=== PATIENT | female | born 1940 | race Caucasian/White ===

== ENCOUNTER → 2019-09-10 | Day surgery (SDC) | payer MEDICARE ==
[2019-09-05 12:55] LABS: BASOPHILS % 0.5 % (0.0-1.0); EOSINOPHILS # (AUTO) 0.1 (0.0-0.4); EOSINOPHILS % 1.5 % (0.0-6.0); HEMATOCRIT 37.3 % (34.2-44.1); HEMOGLOBIN 12.1 g/dL (12.0-16.0); LYMPHOCYTES # (AUTO) 1.6 (1.0-3.2); LYMPHOCYTES % 23.4 % (18.0-39.1); MEAN CORPUSCULAR HEMOGLOBIN 32.4 pg (28-32); MEAN CORPUSCULAR HGB CONC 32.4 g/dL (31-35); MEAN CORPUSCULAR VOLUME 99.7 fL (81-99); MONOCYTES # (AUTO) 0.8 (0.2-0.8); MONOCYTES % 11.6 % (4.4-11.3); NEUTROPHILS # (AUTO) 4.1 (2.1-6.9); NEUTROPHILS % 62.7 % (38.7-80.0); PLATELET COUNT 247 x10e3/uL (140-360); RED BLOOD COUNT 3.74 x10e6/uL (3.6-5.1); RED CELL DISTRIBUTION WIDTH 13.1 % (11.7-14.4)
--- NOTE | 2019-09-05 13:03 | Diagnostic Imaging Report ---
Chest, PA and lateral. History: Preoperative evaluation for left knee surgery. Comparison: None available. Discussion: The cardiomediastinal silhouette and pulmonary vasculature are within normal limits. The lungs are clear without evidence of consolidation or effusion. There are no acute osseous abnormalities. IMPRESSION: No radiographic evidence of acute cardiopulmonary abnormality. Signed by: Alvaro Martinez MD on 09/05/2019 1:00 PM
[2019-09-05 13:17] LABS: ANION GAP 13.9 mmol/L (8-16); BLOOD UREA NITROGEN 15 mg/dL (7-26); BUN/CREATININE RATIO 17 (6-25); CALCIUM 9.9 mg/dL (8.4-10.2); CARBON DIOXIDE 27 mmol/L (22-29); CHLORIDE 101 mmol/L (98-107); CREATININE, SERUM 0.89 mg/dL (0.57-1.11); EST GLOMERULAR FILTRATION RATE > 60 ML/MIN (60-); GLUCOSE 85 mg/dL (74-118); POTASSIUM 3.9 mmol/L (3.5-5.1); SODIUM 138 mmol/L (136-145)
[~2019-09-10] MED LIST: BUPIVACAINE HCL 0.5% INJ 30 ML VIAL INJ ONE; CEFAZOLIN SOD 1 GM/NS 50ML 100 ML IV ONE; DEXAMETHASONE SOD PHOS INJ 4 MG/ML VIAL ONE; FENTANYL CITRATE/PF 100MCG/2 ML INJ ONE; KETOROLAC TROMETHAMINE 30 MG/ML VIAL ONE; LEVOTHYROXINE50 MCG PO; LIDOCAINE HCL 2% LOCAL INJ 5 ML SDV VIAL INJ ONE; ONDANSETRON HCL INJ 2MG/ML 2ML 2 MG/ML VIAL ONE; PROPOFOL IV EMULSION 10 MG/ML 20 ML VIAL ONE; SEVOFLURANE INHAL SOLN 250 ML PEN BTL ONE; VITAMIN B-121000 MCG SC; [UNRECOGNIZED DRUG - OTHER] PO
--- OUTSIDE RECORDS SUMMARY | 2019-09-10 11:58 | XMS REPORT ---
[facility] Address Unknown Phone Unavailable Care Team Providers Care Qa Automation Architect Name Role Phone NITA APONTE Unavailable Unavailable Payers Payer Name Policy Type Policy Number Effective Date Expiration Date Problems This patient has no known problems. Allergies, Adverse Reactions, Alerts Allergy Name Allergy Type Status Severity Reaction(s) Onset Date Inactive Date Treating Clinician Comments No Known Allergies DA Active U 2018-09-27 00:00:00 Medications This patient has no known medications. Results Test Description Test Time Test Comments Text Results Atomic Results Result Comments CHEST 2 VIEWS 2019-09-05 12:59:00 [place] [address] Patient Name: KELSY WALLACE MR #: [id number] : 1940 Age/Sex: 79/F Req #: [id number] Adm Physician: Ordered by: NITA APONTE MD Report #: [id number] Location: OR Room/Bed: Procedure: [id number] DX/CHEST 2 VIEWS Exam Date: 09/05/19 Exam Time: 1240 REPORT STATUS: Signed Chest, PA and lateral. History: Preoperative evaluation for left knee surgery. Comparison: None available. Discussion: The cardiomediastinal silhouette and pulmonary vasculature are within normal limits. The lungs are clear without evidence of consolidation or effusion. There are no acute osseous abnormalities. IMPRESSION: No radiographic evidence of acute cardiopulmonary abnormality. Signed by: Alvaro No MD on 09/05/2019 1:00 PM Dictated By: ALVARO NO MD 1300 Transcribed By: CARLOS on 09/05/19 1300 COPY TO: NITA APONTE MD SCR MAMM BILATERAL ANA CAD DIGITAL 2019-05-15 09:38:41 - SCR MAMM BILATERAL ANA CAD DIGITALBILATERAL DIGITAL SCREENING MAMMOGRAM 3D/2D WITH CAD: 05/14/2019CLINICAL: Asymptomatic. Digital breast tomosynthesis was performed in addition to routine CC and MLO views. Current mammographic images were evaluated by either a [employer] or a [employer] CAD (computer aided detection system). Comparison is made to exams dated 05/03/2018 mammogram, mammogram, and 04/25/2016 mammogram - [facility]-. The tissue of both breasts is heterogeneously dense. This may lower the sensitivity of mammography. No suspicious mass, architectural distortion, malignant type calcification, or lymph node abnormality detected. Breast architecture is stable compared to prior exams.IMPRESSION: NEGATIVEThere is no mammographic evidence of malignancy. Resume annual screening mammography in one year. Edna aguilera/mihaelarad:05/15/2019 09:38:41 Special Event Assistant: Timothy PEREZ, [facility]-FWletter sent: BIRADS 1-2 Normal Mammogram BI-RADS: 1 Negative - CT ABD PELVIS W/O CONT 2018-09-27 10:52:00 Name: KELSY WALLACE [facility] : 1940 Age/S: 78 / F [address] [facility] Unit #: [id number] Loc: [place] [address] Phys: Shalom Singh MD Acct: [id number] Dis Date: Status: REG ER PHONE #: [phone] Exam Date: 09/27/2018 1020 FAX #: [phone] Reason: left sided pain EXAMS: CPT CODE: [id number] CT ABD PELVIS W/O CONT 21366 HISTORY: Left pain radiating to the groin. COMPARISON: None available. CT abdomen and pelvis: Stone protocol. Automated exposure control. CT of abdomen: The lung bases are clear. Dependent changes. The liver is unremarkable on this noncontrast exam. 6 mm low-attenuation lesion in the segment 3 of the left lobe is difficult to characterize. The liver is measuring 17 cm in length. Gallbladder is without radiopaque stones. Unremarkable spleen. Stomach distended incompletely with small hiatal hernia. Noncontrast pancreas and adrenals are normal. Right kidney demonstrating extrarenal pelvis. No hydroureteronephrosis or calyceal stones. No ureteral stones on either side. No perinephric collections. No pathologic adenopathy. Atherosclerotic change of the abdominal and pelvic vasculature. No bowel obstruction or colitis or diverticulitis or enteritis. Constipation. CT PELVIS: Appendix is normal visible but no inflammation. No bowel obstruction. Unremarkable urinary bladder. Right ovarian cyst measured 3.7 cm with average Hounsfield unit measurement of 6 suggestive of simple cyst. Left ovary is not seen. No free fluid or free air. No pelvic pathologic adenopathy. Subcutaneous tissues and the musculature are normal in appearance. No lytic or blastic lesions are noted within the bony skeleton. DJD. IMPRESSION: No hydroureteronephrosis. No calyceal stones. Extrarenal pelvis on the PAGE 1 Signed Report (CONTINUED) Name: KELSY WALLACE [facility] : 1940 Age/S: 78 / F [address] [facility] Unit #: [id number] Loc: [place] [address] Phys: Shalom Singh MD Acct: [id number] Dis Date: Status: REG ER PHONE #: [phone] Exam Date: 09/27/2018 1020 FAX #: [phone] Reason: left sided pain EXAMS: CPT CODE: [id number] CT ABD PELVIS W/O CONT 22547 <Continued> right side. No calyceal dilatation. No ureteral stones visible. Well- distended urinary bladder is unremarkable. Appendix is not visible but no inflammation. No bowel obstruction or colitis or diverticulitis or enteritis. No free fluid or free air. 3.7 cm simple right ovarian cyst. at 1052 Reported and signed by: Lorenzo Hill M.D. CC: Shalom Singh MD Technologist:NIEVES ZENG, RT(R),CT CTDI: DLP: Trnscb Date/Time: 09/27/2018 (1052) [email or web address] Orig Print D/T: S: 09/27/2018 (8521) CTDI: DLP: PAGE 2 Signed Report URINALYSIS COMPLETE 2018-09-27 10:48:00 UA COLOR (test code=COLU) YELLOW YELLOW UA APPEARANCE (test code=APPU) CLEAR CLEAR UA GLUCOSE DIPSTICK (test code=DGLUU) NORMAL mg/dL NEGATIVE UA BILIRUBIN DIPSTICK (test code=BILU) NEGATIVE mg/dL NEGATIVE UA KETONE DIPSTICK (test code=KETU) neg mg/dL NEGATIVE UA SPECIFIC GRAVITY (test code=SGU) 1.010 1.001-1.035 UA BLOOD DIPSTICK (test code=SOURAV) 50 (2+) Ghassan/uL NEGATIVE UA PH DIPSTICK (test code=OLIVIER) 7.0 5.0-8.0 UA PROTEIN DIPSTICK (test code=PROU) neg mg/dL Neg-15 UA UROBILINIOGEN DIPSTICK (test code=URO) norm mg/dL 0.0-0.2 UA NITRITE DIPSTICK (test code=CORWIN) NEGATIVE NEGATIVE UA LEUKOCYTE ESTERASE DIPSTICK (test code=LEUU) NEGATIVE uL NEGATIVE UA WBC (test code=WBCU) 0-5 per HPF 0-5 IN SOME URINARY TRACT INFECTIONS THERE MAY NOT BE ENOUGHWBCs IN THE URINE TO TRIGGER AN AUTOMATIC (REFLEX) URINECULTURE. A SEPERATE ORDER FOR URINE CULTURE IS RECOMMENDEDIF THERE IS STRONG SUPPORT FOR A URINARY TRACT INFECTIONCLINICALLY. UA RBC (test code=RBCU) 6-10 per HPF 0-5 UA EPITHELIAL CELLS (test code=EPIU) None seen per HPF Few UA BACTERIA (test code=BACU) FEW per HPF NONE UA MUCUS (test code=MUCU) FEW per LPF NONE-FEW Urine Source? Clean CatchURINALYSIS [id number] 10:39:00* Test Item Value Reference Range Comments UA COLOR (test code=COLU) YELLOW YELLOW UA APPEARANCE (test code=APPU) CLEAR CLEAR UA GLUCOSE DIPSTICK (test code=DGLUU) NORMAL mg/dL NEGATIVE UA BILIRUBIN DIPSTICK (test code=BILU) NEGATIVE mg/dL NEGATIVE UA KETONE DIPSTICK (test code=KETU) neg mg/dL NEGATIVE UA SPECIFIC GRAVITY (test code=SGU) 1.010 1.001-1.035 UA BLOOD DIPSTICK (test code=SOURAV) 50 (2+) Ghassan/uL NEGATIVE UA PH DIPSTICK (test code=OLIVIER) 7.0 5.0-8.0 UA PROTEIN DIPSTICK (test code=PROU) neg mg/dL Neg-15 UA UROBILINIOGEN DIPSTICK (test code=URO) norm mg/dL 0.0-0.2 UA NITRITE DIPSTICK (test code=CORWIN) NEGATIVE NEGATIVE UA LEUKOCYTE ESTERASE DIPSTICK (test code=LEUU) NEGATIVE uL NEGATIVE UA WBC (test code=WBCU) per HPF 0-5 Urine Source? Clean Catch
[2019-09-10 13:40] VITALS: BP 161/84
--- NOTE | 2019-09-12 23:18 | Operative Report ---
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 OPERATIONS AND PROCEDURES PERFORMED: The patient underwent a left knee examination under anesthesia, left knee arthroscopy, left knee partial medial meniscectomy, left knee chondroplasty of the patella, trochlear groove, the medial femoral condyle, the medial tubercular groove, the lateral femoral condyle and lateral tibial plateau. REHABILITATION CASEWORKER: KVNG Norris ANESTHESIA: General endotracheal intubation anesthesia. IV FLUIDS: Per anesthesia record. BRIEF DESCRIPTION OF THE PATIENT'S OPERATIVE PROCEDURE: Ms. Sanchez was taken to the operating room and placed in supine position on the operating table. Following induction of general anesthesia as well as endotracheal intubation, the patient's left lower extremity was examined under anesthesia. She was found to have a mild effusion within the knee joint, but otherwise ligamentously stable knee. The patient's lower extremity was prepped and draped in standard surgical fashion. A two-port technique used to provide this patient's arthroscopic evaluation of the knee joint. Examination of suprapatellar pouch and medial and lateral gutters found no evidence of loose bodies. There was however evidence of chondromalacia of the patella and trochlear surfaces. The scope was advanced in the medial compartment. Examination of the medial compartment demonstrated torn medial meniscus. There was also chondromalacia of the articulating surfaces. A combination of biting forceps and a motorized shaver were used to resect the torn portion of meniscus. Chondroplasties of the medial femoral condyle and medial tibial plateau performed at this time. The scope was then advanced in the intercondylar notch and the anterior cruciate ligament was identified and found to be intact. The scope was advanced to the lateral compartment and chondroplasties of the lateral femoral condyle and lateral tibial plateau performed at this time. The scope was advanced to patella pouch and chondroplasties of patella and trochlea were performed. The knee was inflated with sterile normal saline. Each of the portal sites were closed using 4-0 nylon suture. The portal sites as well as knee itself were injected with 0.5% Marcaine. Sterile dressings were applied. The patient was awakened and taken to the postanesthesia care in stable condition. MD EFRAIN De Anda/ILYA /[id number]
== END | disposition home or self-care (01) ==
LOC: OR 11:56
PROVIDERS: ATTEND Specialist
DX: S83.222A Peripheral tear of medial meniscus, current injury, left knee, initial encounter (principal); S39.012A Strain of muscle, fascia and tendon of lower back, initial encounter; M16.12 Unilateral primary osteoarthritis, left hip; M17.12 Unilateral primary osteoarthritis, left knee; R22.42 Localized swelling, mass and lump, left lower limb; Z88.5 Allergy status to narcotic agent; Z01.810 Encounter for preprocedural cardiovascular examination; Z01.812 Encounter for preprocedural laboratory examination; Z01.811 Encounter for preprocedural respiratory examination; E03.9 Hypothyroidism, unspecified; I10 Essential (primary) hypertension; E78.5 Hyperlipidemia, unspecified
CPT/HCPCS: 29881; 36415; 71046; 80048; 85025; 93005; J0690; J1100; J1885; J2001; J2405; J2704; J3010

== ENCOUNTER → 2020-01-07 | Day surgery (SDC) | payer MEDICARE, OTHER ==
[2020-01-02 09:19] LABS: BASOPHILS % 0.4 % (0.0-1.0); EOSINOPHILS # (AUTO) 0.1 (0.0-0.4); EOSINOPHILS % 1.7 % (0.0-6.0); HEMATOCRIT 39.4 % (34.2-44.1); HEMOGLOBIN 12.4 g/dL (12.0-16.0); LYMPHOCYTES # (AUTO) 1.8 (1.0-3.2); LYMPHOCYTES % 25.3 % (18.0-39.1); MEAN CORPUSCULAR HGB CONC 31.5 g/dL (31-35); MEAN CORPUSCULAR VOLUME 101.8 fL (81-99); MONOCYTES # (AUTO) 0.9 (0.2-0.8); MONOCYTES % 12.3 % (4.4-11.3); NEUTROPHILS # (AUTO) 4.2 (2.1-6.9); PLATELET COUNT 230 x10e3/uL (140-360); RED BLOOD COUNT 3.87 x10e6/uL (3.6-5.1)
[2020-01-02 09:39] LABS: ANION GAP 12.6 mmol/L (8-16); BLOOD UREA NITROGEN 16 mg/dL (7-26); BUN/CREATININE RATIO 18 (6-25); CALCIUM 9.8 mg/dL (8.4-10.2); CARBON DIOXIDE 28 mmol/L (22-29); CHLORIDE 101 mmol/L (98-107); CREATININE, SERUM 0.87 mg/dL (0.57-1.11); EST GLOMERULAR FILTRATION RATE > 60 ML/MIN (60-); GLUCOSE 68 mg/dL (74-118); POTASSIUM 3.6 mmol/L (3.5-5.1); SODIUM 138 mmol/L (136-145)
[~2020-01-07] MED LIST changes: +ETOMIDATE 2 MG/ML 10 ML INJ IV ONE; -KETOROLAC TROMETHAMINE 30 MG/ML VIAL ONE; -LIDOCAINE HCL 2% LOCAL INJ 5 ML SDV VIAL INJ ONE; +LISINOPRIL-HCT1 EAC2 PO; +TRAMADOL HCL 50 MG TAB ONE
[2020-01-07 09:06] VITALS: BP 149/83
--- NOTE | 2020-01-14 08:17 | Operative Report ---
DATE OF PROCEDURE: 01/07/2020 SURGEON: Cameron Lange MD PREOPERATIVE DIAGNOSES: Right knee medial meniscus tear, right knee degenerative joint disease of the knee. POSTOPERATIVE DIAGNOSES: Right knee medial meniscus tear, right knee degenerative joint disease of the knee. OPERATION AND PROCEDURE PERFORMED: The patient underwent a right knee examination under anesthesia, right knee arthroscopy, right knee partial medial meniscectomy, right knee chondroplasty of the patella and the trochlea of the medial femoral condyle, the medial tibial plateau, and the lateral femoral condyle and lateral tibial plateau. HYDROGEN BRAZE FURNACE OPERATOR: There was no assistant gm of content & delivery. ANESTHESIA: General endotracheal intubation anesthesia. IV FLUIDS: Per the anesthesia record. BRIEF DESCRIPTION OF THE PATIENT'S OPERATIVE PROCEDURE: Ms. Sanchez was taken to the operating room and placed in supine position on the operating table. Following induction of general anesthesia as well as endotracheal intubation, the patient's right lower extremity was examined under anesthesia. She was found to have a mild effusion within the knee joint, but otherwise ligamentously stable knee. The patient's lower extremity was prepped and draped in a standard surgical fashion. A two-port technique was used to provide this patient arthroscopic evaluation of the joint. Examination of suprapatellar pouch, medial and lateral gutters found no evidence of loose bodies. There was however, evidence of chondromalacia of the patellar and trochlear surface. The scope was advanced to the medial compartment. Examination of the medial compartment demonstrates a torn medial meniscus. There was also chondromalacia of the articulating surfaces. A combination of biting forceps and a motorized shaver used to resect the torn portion of meniscus. Chondroplasties of the medial femoral condyle and medial tibial plateau performed at this time. Scope was then advanced to the intercondylar notch and the anterior cruciate was identified and found to be intact. Scope was then advanced to the lateral compartment and chondromalacia articulating surfaces were encountered. A chondroplasty of lateral femoral condyle and lateral tibial plateau performed at this time. Scope was then placed in suprapatellar pouch. Chondroplasties of patellar and trochlea were performed. The knee was inflated with sterile normal saline. Each of the portal sites were closed using 4-0 nylon suture. The portal sites as well as the knee itself were then injected with 0.5% Marcaine with epinephrine. Sterile dressings were applied and the patient was then awakened and taken to postanesthesia care unit in stable condition. MD EFRAIN De Anda/ILYA /[id number]
== END | disposition home or self-care (01) ==
LOC: OR 05:20
PROVIDERS: ATTEND Specialist
DX: S83.221A Peripheral tear of medial meniscus, current injury, right knee, initial encounter (principal); M17.11 Unilateral primary osteoarthritis, right knee; M22.41 Chondromalacia patellae, right knee; M54.5 Low back pain; I10 Essential (primary) hypertension; E03.9 Hypothyroidism, unspecified; Z88.6 Allergy status to analgesic agent; X58.XXXA Exposure to other specified factors, initial encounter; Z01.810 Encounter for preprocedural cardiovascular examination; Z01.812 Encounter for preprocedural laboratory examination; Z11.59 Encounter for screening for other viral diseases
CPT/HCPCS: 29881; 36415; 80048; 85025; 87635; 93005; J0690; J1100; J2405; J2704; J3010